=== PATIENT | male | born 1985 | race Caucasian/White ===

== ENCOUNTER 2019-02-16 23:54 | Emergency (ER) | payer OTHER ==
[~2019-02-16] VITALS: Ht 170.2 cm; Wt 158.8 kg
[2019-02-17 00:05] VITALS: BP 180/100
[2019-02-17 02:10] VITALS: BP 170/95
[2019-02-17] MEDS: KETOROLAC 60 MG/2 ML VIAL IM ONE (02:10)
[2019-02-17] MEDS: DIAZEPAM 5 MG TAB PO ONE (02:10)
== END 2019-02-17 02:24 | disposition home or self-care (01) ==
LOC: MED 23:54
DX: M75.22 Bicipital tendinitis, left shoulder (principal); Z98.890 Other specified postprocedural states
CPT/HCPCS: 73030; 96372; 99283; J1885